=== PATIENT | male | born 2000 | race Caucasian/White ===

== ENCOUNTER 2022-01-13 21:50 | Inpatient (IN) | payer OTHER ==
[~2022-01-13] VITALS: Ht 182.9 cm; Wt 95.9 kg
[2022-01-13 22:27] LABS: HEMATOCRIT 42.3 % (42.0-52.0); HEMOGLOBIN 14.2 g/dl (13.5-17.5); MEAN CORPUSCULAR HEMOGLOBIN 29.3 pg (27.0-33.0); MEAN CORPUSCULAR HGB CONC 33.6 g/dl (32.0-36.5); MEAN CORPUSCULAR VOLUME 87.4 fl (80.0-96.0); PLATELET COUNT, AUTOMATED 229 10^3/uL (150-450); RED BLOOD COUNT 4.84 10^6/uL (4.30-6.10)
[2022-01-13 22:54] LABS: AMPHETAMINES LEVEL URINE NEGATIVE (NEGATIVE); BARBITURATES URINE NEGATIVE (NEGATIVE); BENZODIAZEPINES URINE NEGATIVE (NEGATIVE); CANNABINOIDS URINE NEGATIVE (NEGATIVE); COCAINE METABOLITE URINE NEGATIVE (NEGATIVE); METHADONE URINE NEGATIVE (NEGATIVE); OPIATES URINE NEGATIVE (NEGATIVE); PHENCYCLIDINE URINE NEGATIVE (NEGATIVE)
[2022-01-13 23:00] LABS: ACETAMINOPHEN LEVEL < 2.0 UG/ML (10.0-30.0); ALBUMIN 3.8 GM/DL (3.2-5.2); ALT/SGPT 21 U/L (12-78); BILIRUBIN,DIRECT 0.1 MG/DL (0.0-0.2); BILIRUBIN,TOTAL 0.3 MG/DL (0.2-1.0); BLOOD UREA NITROGEN 12 MG/DL (7-18); CALCIUM LEVEL 9.5 MG/DL (8.5-10.1); CARBON DIOXIDE LEVEL 29 MEQ/L (21-32); CHLORIDE LEVEL 108 MEQ/L (98-107); CREATININE FOR GFR 1.03 MG/DL (0.70-1.30); ETHYL ALCOHOL (ETHANOL) < 0.003 % (0.000-0.010); GLUCOSE, FASTING 102 MG/DL (70-100); POTASSIUM SERUM 3.8 MEQ/L (3.5-5.1); SALICYLATE LEVEL < 1.7 MG/DL (5.0-30.0); SODIUM LEVEL 143 MEQ/L (136-145); TOTAL PROTEIN 6.9 GM/DL (6.4-8.2)
[2022-01-13 23:06] LABS: RSV AMPLIFICATION NEGATIVE (NEGATIVE)
[2022-01-14] MEDS ORDERED: HOME MED LIST COMPLETE! XX SCH (01:50)
[2022-01-14] MEDS ORDERED: MAALOX 30 ML SUSP *UDC PO PRN (02:00)
[2022-01-14] MEDS ORDERED: traZODone 50 MG TAB PO PRN (02:00)
[2022-01-14] MEDS ORDERED: ACETAMINOPHEN TAB 650MG DOSE (2X325MG) PO PRN (02:00)
[2022-01-14] MEDS ORDERED: MOM 30ML SUSPENSION UDC PO PRN (02:00)
[2022-01-14 02:48] VITALS: BP 112/57
[2022-01-14 18:00] VITALS: BP 110/53
[2022-01-15 06:56] VITALS: BP 120/56
[2022-01-16 07:12] VITALS: BP 115/55
== END 2022-01-16 13:38 | disposition home or self-care (01) | DRG 881 ==
LOC: M ED 21:50 → M ED INP 01-14 01:57 → M PSY 01-14 02:46
PROVIDERS: ADMIT Student in an Organized Health Care Education/Training Program; ATTEND Student in an Organized Health Care Education/Training Program
DX: F43.21 Adjustment disorder with depressed mood (principal); Z63.5 Disruption of family by separation and divorce; F41.8 Other specified anxiety disorders